=== PATIENT | male | born 1960 | race Native Hawaiian/Other Pacific Islander ===

== ENCOUNTER 2021-05-14 09:46 | Outpatient (CLI) | payer BC | END 2021-05-14 19:04 | disposition home or self-care (01) | LOC: CT 09:46 | PROVIDERS: ATTEND Internal Medicine | DX: R10.9 Unspecified abdominal pain (principal); R31.9 Hematuria, unspecified ==

== ENCOUNTER 2021-05-25 11:13 | Outpatient (CLI) | payer BC | END 2021-05-25 19:37 | disposition home or self-care (01) | LOC: RAD 11:13 | PROVIDERS: ATTEND Internal Medicine | DX: R10.9 Unspecified abdominal pain (principal); R11.0 Nausea ==